=== PATIENT | female | born 1975 | race Caucasian/White ===

== ENCOUNTER 2017-02-13 07:18 | Observation (INO) | payer BC ==
[2017-02-13] VITALS (21 sets, daily range): BP systolic 121–147; BP diastolic 60–82; PULSE 62–90; RESP 8–22; Ht 167.6 cm; Wt 97.6 kg
[~2017-02-13] VITALS: Ht 167.6 cm; Wt 97.6 kg
[~2017-02-13 07:18] MED LIST: CEFAZOLIN 2 GM/50 ML (PMX) 50 ML IVPB SCH; LIDOCAINE 2% (SDV) 5 ML INJ ONE; SOD CHLORIDE 0.9% 1,000 ML IV SCH
[2017-02-13 08:25] LABS: BASOPHILS % 0.4 % (0.0-2.0); EOSINOPHILS # 0.1 10^3/ul (0.0-0.5); EOSINOPHILS % 1.2 % (0.0-7.0); HEMATOCRIT 41.6 % (37.0-47.0); HEMOGLOBIN 14.6 g/dl (12.0-16.0); LYMPHOCYTES # 3.3 10^3/ul (0.8-2.9); LYMPHOCYTES % 41.2 % (15.0-51.0); MEAN CORPUSCULAR HEMOGLOBIN 32.4 pg (29.0-33.0); MEAN CORPUSCULAR HGB CONC 35.1 g/dl (32.0-37.0); MEAN CORPUSCULAR VOLUME 92.4 fl (82.0-101.0); MEAN PLATELET VOLUME 9.2 fl (7.4-10.4); MONOCYTE # 0.6 10^3/ul (0.3-0.9); MONOCYTES % 7.9 % (0.0-11.0); NEUTROPHIL # 3.9 10^3/ul (1.6-7.5); NEUTROPHILS % 48.7 % (39.0-77.0); PLATELET COUNT 260 10^3/UL (140-415); WHITE BLOOD COUNT 8.1 10^3/ul (4.8-10.8)
[2017-02-13 08:29] LABS: INR 0.96; PROTIME 12.8 Sec (12.2-14.2)
[2017-02-13 08:30] LABS: PARTIAL THROMBOPLASTIN TIME 28.8 Sec (25.0-35.0)
[2017-02-13 08:39] LABS: ALBUMIN 4.1 g/dl (3.3-4.9); ALBUMIN/GLOBULIN RATIO 1.36; BILIRUBIN,INDIRECT 0.9 mg/dl (0-1.1); BILIRUBIN,TOTAL 0.9 mg/dl (0.2-1.3); TOTAL PROTEIN 7.1 g/dl (6.1-8.1)
[2017-02-13 08:47] LABS: CREATININE 0.76 mg/dl (0.44-1.00); POTASSIUM 3.8 mmol/L (3.5-5.1)
[2017-02-13] MEDS ORDERED: FENTAnyl 50 MCG/ML VIAL ONE ×3 (09:28→11:07)
[2017-02-13] MEDS ORDERED: ROCURONIUM 50 MG INJ ONE (09:28)
[2017-02-13] MEDS ORDERED: MIDAZOLAM 1 MG/ML 2 ML INJ ONE (09:28)
[2017-02-13] MEDS ORDERED: PROPOFOL 20 ML ONE (09:28)
[2017-02-13] MEDS ORDERED: DEXAMETHASONE 4 MG/ML 1 ML INJ ONE (10:07)
[2017-02-13] MEDS ORDERED: FAMOTIDINE 20 MG INJ ONE (10:07)
[2017-02-13] MEDS ORDERED: ONDANSETRON 4 MG INJ ONE ×2 (10:07→11:49)
[2017-02-13] MEDS ORDERED: CEFAZOLIN 1 GM INJ ONE (10:07)
[2017-02-13] MEDS ORDERED: ACETAMINOPHEN 1000MG/100ML IV 100 ML ONE (10:48)
[2017-02-13] MEDS ORDERED: SUGAMMADEX SODIUM 200 MG/2 ML VIAL IV ONE (11:00)
[2017-02-13] MEDS ORDERED: D5W-0.45 NACL + KCL 20 MEQ 1,000 ML IV SCH (11:20)
--- NOTE | 2017-02-13 11:20 | SIPON ---
Date/Time of Note Date/Time of Note DATE: 02/13/17 TIME: 11:18 Operative Report Preoperative Diagnosis Symptomatic cholelithiasis Postoperative Diagnosis Symptomatic cholelithiasis and chronic cholecystitis Operation/Procedure Performed Laparoscopic cholecystectomy Surgeon see signature line certified pathology assistant None Anesthesia: general Estimated blood loss: 10 - 50 ml's Transfusion Required none Specimen Gallbladder Grafts/Implants none Complications none GOMEZ HESTER MD Feb 13, 2017 11:20
[2017-02-13] MEDS ORDERED: HYDROmorphONE (0.2 MG/ML) 10ML SYG IV PRN ×2 (11:30→11:52)
[2017-02-13] MEDS ORDERED: FENTAnyl 50 MCG/ML VIAL IV PRN ×2 (11:30)
[2017-02-13] MEDS ORDERED: METOCLOPRAMIDE 10 MG INJ IV PRN (11:30)
[2017-02-13] MEDS ORDERED: ONDANSETRON 4 MG INJ IV PRN ×3 (11:30→19:00)
[2017-02-13] MEDS ORDERED: MEPERIDINE 25 MG INJ IV PRN (11:30)
[2017-02-13] MEDS ORDERED: ACETAMINOPHEN 1000MG/100ML IV 100 ML IVPB PRN ×2 (11:30→19:00)
[2017-02-13] MEDS ORDERED: HYDROCODONE/APAP (5/325) TAB PO PRN (11:30)
[2017-02-13] MEDS ORDERED: HYDROmorphONE (0.2 MG/ML) 10ML SYG IV ONE (11:48)
--- NOTE | 2017-02-13 11:52 | OPR ---
DATE OF OPERATION: 02/13/2017 PREOPERATIVE DIAGNOSIS: Symptomatic cholelithiasis. POSTOPERATIVE DIAGNOSIS: Chronic cholecystitis. PROCEDURE: Laparoscopic cholecystectomy. ANESTHESIA: General. ANESTHESIOLOGIST: Dr. Wing SURGEON: Dr. Saravia CHAIR FINISHER: None. INDICATIONS FOR PROCEDURE: The patient is a 41-year-old female who experienced multiple previous ep isodes of right upper quadrant pain. She had been evaluated with ultrasound which confirmed a large number of stones impacted within the gallbladder. She was counseled as to the risks versus benefit s of cholecystectomy and she consented and was scheduled for surgery. DESCRIPTION OF PROCEDURE: The patient was brought to the operating theater, placed under general en dotracheal tube anesthesia. The abdomen was prepped and draped in usual sterile fashion. Approxima tely 2 to 3 cm incision was made in the midline just above the umbilicus. Subcutaneous tissue was d issected with cautery down to the anterior rectus sheath, 0 Vicryl stay sutures were placed on eithe r side of the linea alba. Linea alba was incised and the abdomen was entered without difficulty. H asson trocar was then placed in standard fashion. The abdomen was insufflated to a pressure of 14 m mHg with carbon dioxide. The laparoscope was then introduced. Attention was directed to the right upper quadrant where a thick walled distended gallbladder was identified. The 3 accessory ports wer e then placed under direct vision. Through the lateral port sites, the gallbladder was grasped at i ts fundus and Dr. Saravia made the decision to perform a cholecystotomy to decompress the gallbladder. This was done using cautery and several milliliters of thick whitish bile was then aspirated. At this point, it became obvious that there were multiple large stones within the gallbladder. A secon d grasper was then placed on the neck of the gallbladder. The gallbladder was retracted cephalad an d lateral. Peritoneum overlying both the medial and lateral aspect of the gallbladder was then inci sed with cautery to facilitate mobilization of triangle of [place]. With meticulous dissection, the c ystic duct was isolated. Two clips were placed across it distally and it was then transected with t endovascular NATHANIEL stapler at its junction with the neck of the gallbladder. Subsequently, the cys tic artery was isolated, triply clipped and transected. The gallbladder was then dissected out of t gallbladder fossa using cautery. Prior to final transection, irrigation and inspection took plac e. Minimal bleeding was controlled with cautery. The gallbladder was transected. The laparoscope was moved to the 12-mm subcostal port site, the gallbladder was retrieved from the abdomen using the gallbladder retrieval bag and brought out through the umbilical port site. The Wanda trocar was t hen returned back to the abdomen. The laparoscope was reintroduced to the umbilical port site. Fin al irrigation and inspection took place. There was no evidence of bleeding. The 3 accessory ports were removed under direct vision. Again, there was no evidence of bleeding. Finally, the umbilical port was removed. The midline umbilical fascia was reapproximated with #1 looped PDS sutures in ru nning fashion. All wounds were then irrigated with Betadine. Skin incisions were reapproximated wi th skin obi. The patient tolerated procedure well. The estimated blood loss was 30 mL. There were no complications and the patient was transported in stable condition to the recovery room. Dictated By: GOMEZ MANZANO/ROSMERY Conf#: [id number] DID#: [id number]
--- NOTE | 2017-02-13 14:15 | HP ---
DATE OF ADMISSION: 02/13/2017 HISTORY OF PRESENT ILLNESS: The patient is 41-year-old female who experienced multiple previous epi sodes of right upper quadrant pain. She was evaluated with ultrasound, which was positive for large number of stones impacted within the gallbladder. She was evaluated by Dr. Saravia in general surger y consultation and patient was brought to the hospital and underwent laparoscopic cholecystectomy. Postoperatively, she experienced moderate to significant pain and patient will be admitted for [facility] er evaluation and management. PAST MEDICAL HISTORY: Positive for obesity. Patient denies having any chronic conditions. PAST SURGICAL HISTORY: Status post abdominoplasty, status post breast augmentation surgery, status post liposuction. FAMILY HISTORY: Noncontributory. SOCIAL HISTORY: Patient lives at home with the family. Patient does smoke cigarettes occasionally not every day smoker. Denies any illicit drugs. Drinks alcohol occasionally. ALLERGIES: PATIENT IS ALLERGIC TO MORPHINE. HOME MEDICATIONS: No active prescriptions. REVIEW OF SYSTEMS: A 12-point review of systems negative unless what mentioned in the HPI. PHYSICAL ASSESSMENT: GENERAL: Well-developed, obese female in no acute distress. VITAL SIGNS: Temperature 98.0, pulse is 72, blood pressure 130/70, respiratory rate 12, oxygen satu ration 97% on room air. HEENT: Head is atraumatic, normocephalic. Pupils equal, round, reactive to light and accommodation . Oral mucosa is pink and moist. NECK: Supple, no cervical lymphadenopathy, no thyromegaly. CHEST: Lungs clear bilaterally. There is no rhonchi, wheezes, rales noted. CARDIOVASCULAR: Normal S1, S2. No murmurs, gallops, clicks, rubs noted. ABDOMEN: Status post surgery with laparoscopic incision, which is intact. EXTREMITIES: No edema, clubbing, cyanosis. SKIN: No rash, petechiae noted. The patient has multiple tattoos. NEUROLOGIC: Patient is awake, alert and oriented x3. No focal deficits noted. Motor strength 5/5 in all extremities. LABORATORY DATA: On admission, CBC: White blood cells 8.1, hemoglobin 14.6, hematocrit 41.6, plate lets 260. Chemistry: Sodium is 145, potassium 3.8, chloride 110, carbon dioxide 24, anion gap 15, BUN 14, creatinine 0.72, glucose 90, AST is 23, ALT 36, alkaline phosphatase 46. PT is 12.8, INR is 0.96, PTT is 28.8. ASSESSMENT AND PLAN: 1. Chronic cholecystitis status post laparoscopic cholecystectomy. I will admit patient to medical /surgical floor. Continue Dilaudid and [place] p.r.n. for pain and Zofran p.r.n. for nausea. Advance diet as patient tolerates. 2. Obesity with BMI of 34. Continue sequential compression devices for deep venous thrombosis prophylaxis. Continue IV fluids, postoperative antibiotic. CBC and BMP tomorrow. Further recommendations based on clinical course. Plan of care discussed with Dr. Oconnell. Dictated By: USAMA HERNANDEZ [employer]KE [employer] PACKER for WASHINGTON OCONNELL MD SR/NTS Conf#: [id number] DID#: [id number]
[2017-02-13] MEDS: D5W-0.45 NACL + KCL 20 MEQ 1,000 ML IV SCH (19:00)
[2017-02-14] MEDS: HYDROCODONE/APAP (5/325) TAB PO PRN ×2 (00:18→09:57)
[2017-02-14] MEDS: D5W-0.45 NACL + KCL 20 MEQ 1,000 ML IV SCH ×2 (05:00→15:00)
[2017-02-14 05:27] VITALS: BP 106/64; RESP 16
[2017-02-14 07:58] VITALS: BP 119/77; RESP 16
[2017-02-14 08:40] LABS: BASOPHILS % 0.2 % (0.0-2.0); EOSINOPHILS % 0.1 % (0.0-7.0); HEMOGLOBIN 13.7 g/dl (12.0-16.0); LYMPHOCYTES # 3.3 10^3/ul (0.8-2.9); LYMPHOCYTES % 24.3 % (15.0-51.0); MEAN CORPUSCULAR HEMOGLOBIN 31.3 pg (29.0-33.0); MEAN CORPUSCULAR HGB CONC 33.4 g/dl (32.0-37.0); MEAN CORPUSCULAR VOLUME 93.6 fl (82.0-101.0); MEAN PLATELET VOLUME 9.2 fl (7.4-10.4); MONOCYTES % 7.2 % (0.0-11.0); NEUTROPHIL # 9.1 10^3/ul (1.6-7.5); NEUTROPHILS % 67.8 % (39.0-77.0); PLATELET COUNT 264 10^3/UL (140-415); RED BLOOD COUNT 4.38 10^6/ul (4.20-5.40); RED CELL DISTRIBUTION WIDTH 12.2 % (11.5-14.5); WHITE BLOOD COUNT 13.4 10^3/ul (4.8-10.8)
[2017-02-14 09:09] LABS: CREATININE 0.76 mg/dl (0.44-1.00); POTASSIUM 4.3 mmol/L (3.5-5.1)
[2017-02-14] MEDS ORDERED: HYDR-3498 PO (12:44)
[2017-02-14 14:08] VITALS: BP 124/80; RESP 16
--- NOTE | 2017-02-14 14:44 | PN ---
DATE: 02/14/2017 PROGRESS NOTE FOLLOWUP Status post laparoscopic cholecystectomy. SUBJECTIVE: No specific complaint. Has tolerated diet and walking around. OBJECTIVE: VITAL SIGNS: Temperature 98.7, heart rate 67, saturation 97%, blood pressure 106/64, respiratory ra te 16. ABDOMEN: Soft. Wound is clean. ASSESSMENT: A 41-year-old female status post laparoscopic cholecystectomy for symptomatic gallstone s and chronic cholecystitis. Patient is doing fine so far and tolerating diet. Minimal pain. PLAN: Therefore, can be discharged home today, to be followed by Dr. Saravia in his office. The radha ent to call Dr. Saravia' office and make an appointment. Dictated By: EREN PISANO MD PS/ROSMERY Conf#: [id number] DID#: [id number]
--- NOTE | 2017-02-14 18:21 | DS ---
Date/Time of Note Date/Time of Note DATE: 02/14/17 TIME: 18:20 Discharge Summary Admission/Discharge Info Admit Date/Time Feb 13, 2017 at 11:23 Discharge Date/Time Feb 14, 2017 at 15:45 Patient Condition: Stable Hx of Present Illness The patient is 41-year-old female who experienced multiple previous episodes of right upper quadrant pain. She was evaluated with ultrasound, which was positive for large number of stones impacted within the gallbladder. She was evaluated by Dr. Saravia in general surgery consultation and patient was brought to the hospital and underwent laparoscopic cholecystectomy. Postoperatively, she experienced moderate to significant pain and patient will be admitted for further evaluation and management. Hospital Course 1. Chronic cholecystitis status post laparoscopic cholecystectomy. Admit patient to medical/surgical floor. Continue Dilaudid and [place] p.r.n. for pain and Zofran p.r.n. for nausea. Advance diet as patient tolerates. 2. Obesity with BMI of 34. Home Meds Active Scripts Hydrocodone Bit-Acetaminophen (Hydrocodone Bit-APAP) 5-325MG Tablet, 1 TAB PO Q6H Y for PAIN, #30 TAB Prov:USAMA HERNANDEZ 02/14/17 Follow-up Plan Follow-up with Dr. Saravia in 1 week Primary Care Provider Mason Martinez Pending Labs Laboratory Tests Test 02/14/17 06:11 02/14/17 08:10 Lab Scanned Report [id number] White Blood Count 13.410^3/ul (4.8-10.8) Red Blood Count 4.3810^6/ul (4.20-5.40) Hemoglobin 13.7g/dl (12.0-16.0) Hematocrit 41.0% (37.0-47.0) Mean Corpuscular Volume 93.6fl (82.0-101.0) Mean Corpuscular Hemoglobin 31.3pg (29.0-33.0) Mean Corpuscular Hemoglobin Concent 33.4g/dl (32.0-37.0) Red Cell Distribution Width 12.2% (11.5-14.5) Platelet Count 08714^3/UL (140-415) Mean Platelet Volume 9.2fl (7.4-10.4) Neutrophils % 67.8% (39.0-77.0) Lymphocytes % 24.3% (15.0-51.0) Monocytes % 7.2% (0.0-11.0) Eosinophils % 0.1% (0.0-7.0) Basophils % 0.2% (0.0-2.0) Nucleated Red Blood Cells % 0.0/100WBC (0.0-0.0) Neutrophils # 9.110^3/ul (1.6-7.5) Lymphocytes # 3.310^3/ul (0.8-2.9) Monocytes # 1.010^3/ul (0.3-0.9) Eosinophils # 0.010^3/ul (0.0-0.5) Basophils # 0.010^3/ul (0.0-0.1) Nucleated Red Blood Cells # 0.010^3/ul (0.0-0.0) Sodium Level 142mmol/L (135-144) Potassium Level 4.3mmol/L (3.5-5.1) Chloride Level 107mmol/L (97-110) Carbon Dioxide Level 27mmol/L (21-31) Anion Gap 12 (8-16) Blood Urea Nitrogen 9mg/dl (7-20) Creatinine 0.76mg/dl (0.44-1.00) Glucose Level 95mg/dl (70-220) Calcium Level 9.0mg/dl (8.4-10.2) USAMA HERNANDEZ Feb 14, 2017 18:21
== END 2017-02-14 15:45 | disposition home or self-care (01) ==
LOC: SDS 07:18 → MS1 11:23 → SDS 11:23 → MS1 12:37 → UNDOFXSDCSVC 12:37
PROVIDERS: ADMIT Surgery Surgical Oncology; ATTEND Surgery Surgical Oncology
DX: K80.10 Calculus of gallbladder with chronic cholecystitis without obstruction (principal); E66.9 Obesity, unspecified; Z68.34 Body mass index [BMI] 34.0-34.9, adult; F17.210 Nicotine dependence, cigarettes, uncomplicated; Z88.5 Allergy status to narcotic agent
CPT/HCPCS: 47562; 80048; 80053; 84703; 85025; 85610; 85730; 88304; J0131; J0690; J1100; J1170; J2250; J2405; J3010; J3480; Z7500; Z7512; Z7610; G0378